=== PATIENT | female | born 1995 | race Caucasian/White ===

== ENCOUNTER 2016-09-20 05:37 | Emergency (ER) | payer MEDICAID ==
[~2016-09-20] VITALS: Ht 152.4 cm; Wt 58.1 kg
[2016-09-20 05:37] VITALS: BP 130/89; PULSE 68; RESP 18; TEMP 98.5; O2SAT 98
--- NOTE | 2016-09-20 05:37 | NUR ---
Patient to ER bed 6 to gown for evaluation. Side rails up. Report given to RENE BARAHONA.
--- NOTE | 2016-09-20 05:37 | NUR ---
Pt ambulatory, a/0 x 4 c/o vomiting x 4 and diarrhea x 5 since last night at 2100 hrs. Pt c/o lower abdominal pain, tightness/cramping, 7/10 ps. Pt took pepto bismul w/o relief of symptoms. Pt believes she had food poisoning. Pt claimed she has been constipated for months until last night. Pt afebrile, no chills, no dizziness, no cp, no sob. Pt made comfortable in bed. Awaiting ER MD to eval and treat.
--- NOTE | 2016-09-20 05:42 | NUR ---
ER at bedside examining patient.
[2016-09-20] MEDS ORDERED: NACL 0.9% 1,000 ML IV ONE ×2 (06:15)
[2016-09-20] MEDS ORDERED: ONDANSETRON HCL 4 MG/2 ML VIAL IVP ONE (06:15)
[2016-09-20 06:40] LABS: BASOPHILS % (AUTO) 0.3 % (0.0-2.0); EOSINOPHILS # (AUTO) 0.1 K/uL (0.0-0.4); EOSINOPHILS % (AUTO) 0.8 % (0.0-4.0); HEMATOCRIT 38.9 % (36-48); HEMOGLOBIN 13.6 g/dL (12.0-16.0); LYMPHOCYTES # (AUTO) 1.7 K/uL (1.0-5.5); MEAN CORPUSCULAR HEMOGLOBIN 33 pg (27-31); MEAN CORPUSCULAR HGB CONC 35 % (32-36); MEAN CORPUSCULAR VOLUME 93 fL (79.0-98.0); MONOCYTES # (AUTO) 0.7 K/uL (0.0-1.0); MONOCYTES % (AUTO) 4.9 % (1.7-9.3); NEUTROPHILS # (AUTO) 11.8 K/uL (1.8-7.7); PLATELET COUNT (AUTO) 358 K/uL (130-430); RED BLOOD CELL COUNT(AUTO) 4.19 MIL/uL (4.2-6.2); WHITE BLOOD COUNT (AUTO) 14.3 K/uL (4.8-10.8)
[2016-09-20 06:46] LABS: CALCIUM 9.4 mg/dL (8.4-11.0); CREATININE 0.59 mg/dL (0.55-1.30); POTASSIUM 3.6 mmol/L (3.5-5.1)
[2016-09-20 06:51] LABS: ALBUMIN 4.3 g/dL (3.4-4.8); TOTAL BILIRUBIN 0.4 mg/dL (0.0-1.0); TOTAL PROTEIN, SERUM 7.7 g/dL (6.4-8.3)
[2016-09-20 07:30] VITALS: BP 125/78; PULSE 72; RESP 20; TEMP 98.2; O2SAT 100
--- NOTE | 2016-09-20 07:30 | NUR ---
Patient given written and verbal discharge instructions and verbalizes understanding. ER MD discussed with patient the results and treatment provided. Patient in stable condition. ID arm band removed. IV catheter removed intact and dressing applied, no active bleeding. Rx of Tramadol and Zofran given. Patient educated on pain management and to follow up with PMD. Pain Scale 1/10, tolerable. Opportunity for questions provided and answered.
== END 2016-09-20 07:30 | disposition home or self-care (01) ==
LOC: SED 05:37
DX: A08.4 Viral intestinal infection, unspecified (principal); K56.7 Ileus, unspecified; R03.0 Elevated blood-pressure reading, without diagnosis of hypertension
CPT/HCPCS: 36415; 74000; 80053; 81025; 85025; 85610; 85730; 96361; 96374; 99285; J2405; J7030